=== PATIENT | female | born 1950 | race Caucasian/White ===

== ENCOUNTER 2021-08-16 11:15 | Outpatient (CLI) | payer MEDICARE ==
[~2021-08-16 11:15] MED LIST: Iopamidol-370 76% 500 ML 1 ML ONE
== END 2021-08-16 11:16 | disposition home or self-care (01) ==
LOC: CT 11:15
PROVIDERS: ATTEND Surgery
DX: K92.1 Melena (principal); R10.9 Unspecified abdominal pain; Z87.898 Personal history of other specified conditions; R10.30 Lower abdominal pain, unspecified; R97.8 Other abnormal tumor markers
CPT/HCPCS: 36415; 74177; 82565; 86304; Q9967

== ENCOUNTER 2021-12-26 08:15 | Outpatient (CLI) | payer MEDICARE | END 2021-12-26 08:16 | disposition home or self-care (01) | LOC: BICMAMMO 08:15 | PROVIDERS: ATTEND Family Medicine | DX: Z13.820 Encounter for screening for osteoporosis (principal); N95.1 Menopausal and female climacteric states | CPT/HCPCS: 77080 ==

== ENCOUNTER 2022-07-14 12:40 | Outpatient (CLI) | payer MEDICARE | END 2022-07-14 12:41 | disposition home or self-care (01) | LOC: SCSMRI 12:40 | PROVIDERS: ATTEND Specialist | DX: M54.12 Radiculopathy, cervical region (principal); Z98.1 Arthrodesis status | CPT/HCPCS: 72141 ==

== ENCOUNTER 2023-08-06 10:33 | Outpatient (CLI) | payer MEDICARE | END 2023-08-06 10:34 | disposition home or self-care (01) | LOC: BICMAMMO 10:33 | PROVIDERS: ATTEND Student in an Organized Health Care Education/Training Program | DX: Z12.31 Encounter for screening mammogram for malignant neoplasm of breast (principal) | CPT/HCPCS: 77063; 77067 ==